=== PATIENT | female | born 1965 | race Caucasian/White ===

== ENCOUNTER 2023-10-02 02:05 | Emergency (ER) | payer BC ==
[~2023-10-02] VITALS: Ht 167.6 cm; Wt 75.0 kg
[2023-10-02] MEDS: ALBUTEROL (0.083%) 2.5MG/3ML NEB HHN STA (05:53)
[2023-10-02 05:54] VITALS: PULSE 91; RESP 22; O2SAT 97
[2023-10-02] MEDS ORDERED: ALBU6.7H15 INH (06:47)
[2023-10-02 06:52] VITALS: BP 135/87; PULSE 95; RESP 20; TEMP 98
== END 2023-10-02 06:51 | disposition home or self-care (01) ==
LOC: ER 02:05
DX: J20.8 Acute bronchitis due to other specified organisms (principal)
CPT/HCPCS: 71045; 99283; Z7610